=== PATIENT | male | born 1965 | race Caucasian/White ===

== ENCOUNTER 2022-05-22 09:39 | Emergency (ER) | payer OTHER ==
[2022-05-22 11:22] LABS: HEMOGLOBIN 14.1 gm/dl (14.0-17.5); RED BLOOD COUNT 4.12 M/UL (4.20-5.50); WHITE BLOOD COUNT 6.3 K/UL (4.5-11.0)
[2022-05-22 11:42] LABS: BUN/CREATININE RATIO 16 (0-10)
== END 2022-05-22 17:45 | disposition home or self-care (01) ==
LOC: ER1 09:39
PROVIDERS: Physician Assistant
DX: K68.11 Postprocedural retroperitoneal abscess (principal); K21.9 Gastro-esophageal reflux disease without esophagitis; F17.200 Nicotine dependence, unspecified, uncomplicated; Z88.5 Allergy status to narcotic agent
CPT/HCPCS: 80053; 83605; 85025; 86140; 96374; 99284; J2543; Q9967

== ENCOUNTER → 2022-05-29 | Day surgery (SDC) | payer OTHER ==
[~2022-05-29] MED LIST: BREZTRI AEROS10.7 GM INH; BUMETANIDE1 MG PO; FAMOTIDINE10 MG PO; FOLIC ACID 1 MG1 MG PO; HYDROCODON-ACE1 EAC4 PO; IBU800 MG PO; LORATADINE10 MG PO; MUCUS ER600 MG PO; MULTI-VITAMIN1 EACH PO; PROAIR HFA8.5 GM INH; SPIRONOLACTONE25 MG PO; VARENICLINE TART1 MG PO; ZOFRAN ODT 4 MG4 MG PO
== END | disposition home or self-care (01) ==
LOC: OR 05:08
DX: T81.32XA Disruption of internal operation (surgical) wound, not elsewhere classified, initial encounter (principal); J44.9 Chronic obstructive pulmonary disease, unspecified; F17.210 Nicotine dependence, cigarettes, uncomplicated; K21.9 Gastro-esophageal reflux disease without esophagitis; Z88.5 Allergy status to narcotic agent; X58.XXXA Exposure to other specified factors, initial encounter
CPT/HCPCS: 87070; 87205; J0690; J2001; J2250; J2704; J3010

== ENCOUNTER 2022-06-03 13:33 | Emergency (ER) | payer OTHER ==
[2022-06-03 14:03] LABS: HEMOGLOBIN 13.8 gm/dl (14.0-17.5); RED BLOOD COUNT 4.08 M/UL (4.20-5.50); WHITE BLOOD COUNT 6.9 K/UL (4.5-11.0)
[2022-06-03 14:18] LABS: BUN/CREATININE RATIO 12 (0-10)
== END 2022-06-03 16:39 | disposition home or self-care (01) ==
LOC: ER1 13:33
DX: G89.18 Other acute postprocedural pain (principal); R10.9 Unspecified abdominal pain; J44.9 Chronic obstructive pulmonary disease, unspecified; F17.210 Nicotine dependence, cigarettes, uncomplicated; Z90.49 Acquired absence of other specified parts of digestive tract
CPT/HCPCS: 80053; 81001; 83690; 85025; 99284; Q9967